=== PATIENT | male | born 1980 | race Caucasian/White ===

== ENCOUNTER 2016-04-14 23:46 | Emergency (ER) | payer OTHER ==
[~2016-04-14] VITALS: Ht 172.7 cm; Wt 93.0 kg
[2016-04-15] MEDS ORDERED: AMOX500T PO (00:10)
[2016-04-15] MEDS ORDERED: IBUP800T23 PO (02:35)
[2016-04-15] MEDS ORDERED: AUGM875T27 PO (02:35)
[2016-04-15 02:44] VITALS: BP 138/94
[2016-04-15] MEDS ORDERED: NORCO 5/325MG TABLET (BULK) PO ONE (02:45)
[2016-04-15] MEDS ORDERED: AUGMENTIN 875 MG TAB PO ONE (02:45)
== END 2016-04-15 02:49 | disposition home or self-care (01) ==
LOC: M ED 04-15 01:02
DX: K02.9 Dental caries, unspecified (principal); R68.84 Jaw pain; K13.79 Other lesions of oral mucosa; G50.1 Atypical facial pain; F17.200 Nicotine dependence, unspecified, uncomplicated; Z88.1 Allergy status to other antibiotic agents

== ENCOUNTER 2016-04-16 20:21 | Emergency (ER) | payer OTHER ==
[~2016-04-16] VITALS: Ht 172.7 cm; Wt 93.0 kg
[~2016-04-16 20:21] MED LIST: AMOX500T PO; AUGM875T27 PO; IBUP800T23 PO
[2016-04-16] MEDS ORDERED: AMPICILLIN SOD/SULBACTAM SOD 3 GM in D5W MINI-BAG PLUS 100 ML IV ONE (23:30)
[2016-04-16] MEDS ORDERED: MORPHINE 4 MG/ML 1ML SYRINGE IV ONE (23:30)
[2016-04-17] MEDS ORDERED: NORCOTAB PO ×2 (00:32→00:33)
[2016-04-17 00:39] VITALS: BP 137/77
== END 2016-04-17 00:43 | disposition home or self-care (01) ==
LOC: M ED 22:08
DX: K02.9 Dental caries, unspecified (principal); J45.909 Unspecified asthma, uncomplicated; Z88.0 Allergy status to penicillin

== ENCOUNTER 2023-08-02 06:04 | Emergency (ER) | payer OTHER, SELFPAY ==
[~2023-08-02] VITALS: Ht 170.2 cm; Wt 85.1 kg
[~2023-08-02 06:04] MED LIST changes: -AUGM875T27 PO; +AUGM875T28 PO; +HYDR-3715 PO; +IBUP1TAB7 PO; -IBUP800T23 PO
[2023-08-02] MEDS ORDERED: KETO10TAB PO (09:02)
[2023-08-02] MEDS ORDERED: AMOX875T2 PO (09:03)
[2023-08-02] MEDS: KETOROLAC TROMETHAMINE 10 MG TAB PO ONE (09:07)
[2023-08-02 09:34] VITALS: BP 141/88; TEMP 98.3; O2SAT 96
== END 2023-08-02 09:36 | disposition home or self-care (01) ==
LOC: M ED 06:04
DX: K04.7 Periapical abscess without sinus (principal); Z88.1 Allergy status to other antibiotic agents; Z79.2 Long term (current) use of antibiotics